=== PATIENT | male | born 1975 | race Caucasian/White ===

== ENCOUNTER 2021-07-25 14:34 | Emergency (ER) | payer OTHER, BC ==
[2021-07-25 14:50] VITALS: BP 157/87; PULSE 71; TEMP 97.6; BMI 28.5
== END 2021-07-25 15:46 | disposition home or self-care (01) ==
LOC: JERFT 14:34
DX: S69.92XA Unspecified injury of left wrist, hand and finger(s), initial encounter (principal); W23.1XXA Caught, crushed, jammed, or pinched between stationary objects, initial encounter
CPT/HCPCS: 73140-TC-LT-FY; 99283-25